=== PATIENT | female | born 1975 | race Caucasian/White ===

== ENCOUNTER 2021-11-13 16:04 | Emergency (ER) | payer OTHER ==
[~2021-11-13] VITALS: Ht 170.2 cm; Wt 93.0 kg
--- OUTSIDE RECORDS SUMMARY | 2021-11-13 16:08 | XMS ---
PreManage Notification: EDUARDO DAVENPORT [employer] [facility] Financial Analyst Events No recent Security Events currently on file [facility] There are no care providers on record at this time. Scot has no Care Guidelines for this patient. Ayse VISIT COUNT (12 MO.) 1 MICKEY Soto TOTAL 1 NOTE: Visits indicate total known visits. ED/C VISIT TRACKING (12 MO.) 11/13/2021 16:05 MICKEY Driver OR TYPE: Emergency COMPLAINT: - R HAND INJURY INPATIENT VISIT TRACKING (12 MO.) No inpatient visits to display in this time frame [email or web address]
[2021-11-13] MEDS ORDERED: TRAZODONE HCL50 MG PO (18:47)
[2021-11-13] MEDS ORDERED: FEROSUL325 MG PO (18:47)
[2021-11-13] MEDS ORDERED: MOVANTIK12.5 MG PO (18:48)
[2021-11-13] MEDS ORDERED: FLUTICASONE PRO15 G1 TOP (18:48)
[2021-11-13] MEDS ORDERED: LEVOTHYROXINE75 MCG PO (18:49)
[2021-11-13] MEDS ORDERED: BUPRENORPHINE-1 EACH SL (18:49)
[2021-11-13] MEDS ORDERED: PROMETHAZINE HC25 M1 PO (18:49)
[2021-11-13] MEDS ORDERED: AUGMENTIN 875-1 EACH PO (19:47)
[2021-11-13] MEDS ORDERED: ULTRAM50 MG PO (19:47)
== END 2021-11-13 20:15 | disposition home or self-care (01) ==
LOC: ED 16:04
DX: S61.230A Puncture wound without foreign body of right index finger without damage to nail, initial encounter (principal); W22.8XXA Striking against or struck by other objects, initial encounter; Y99.0 Civilian activity done for income or pay; Z23 Encounter for immunization; Z79.899 Other long term (current) drug therapy
CPT/HCPCS: 73140; 90471; 90714; 99283-25

== ENCOUNTER 2023-09-10 05:40 | Day surgery (SDC) | payer OTHER ==
[2023-07-13 09:27] VITALS: BP 105/79
[2023-08-30 10:25] VITALS: BP 119/79
[~2023-09-10] VITALS: Ht 170.2 cm; Wt 84.1 kg
[~2023-09-10 05:40] MED LIST: AUGMENTIN 875-1 EACH PO; BUPRENORPHINE-1 EACH SL; FEROSUL325 MG PO; FLUTICASONE PRO15 G1 TOP; GERI-KOT8.6 MG PO; LEVOTHYROXINE75 MCG PO; MOVANTIK12.5 MG PO; PROMETHAZINE HC25 M1 PO; TRAZODONE HCL50 MG PO; ULTRAM50 MG PO
[2023-09-10 05:56] VITALS: BP 111/74
--- NOTE | 2023-09-10 07:09 | NUR ---
PT ACCOMPANIED BY MALE AMUSEMENT PARK RIDE MECHANIC. BOTH IN GOOD SPIRITS. BOTH DENIED NEEDS. CONSENTED TO PRAYER. PRAYED FOR SUCCESSFUL PROCEDURE AND ABIDING PEACE.
--- NOTE | 2023-09-10 08:25 | NUR ---
09/10/23 0825 Martita Bowen 0808-PT PRESENTS TO PACU, NON REACTIVE INITIALLY. ALL MONITORS PLACED ON PT AND PT STARTING TO OPEN EYES WITH CONTINUED STIMULUS. PT DENIES PAIN AND NAUSEA. ABD SOFT, NON DISTENDED, ENCOURAGED TO PASS GAS. O2 IN PLACE AT 6L, INTERMITTENT COUGHING. LR INFUSING TO RW IV, NO SIGNS OF DISTRESS. 0812- PT PLACED ON ROOM AIR, TOLERATING WELL. WILL CONTINUE TO MONITOR. PT AWAKE AND ANSWERING QUESTIONS. MOVING ALL EXTREMITIES EQUALLY. 0824- WATER PROVIDED TO PT, TOLERATING WELL.
[2023-09-10 08:32] VITALS: BP 125/92
--- NOTE | 2023-09-10 09:16 | OR ---
[facility] [address], [place] [address] Signed DATE OF OPERATION: 09/10/2023 SURGEON: Fiona Junior MD PREOPERATIVE DIAGNOSES: 1. Chronic constipation (colonic inertia). 2. Hemorrhoids. 3. Paternal uncle with colon cancer in his 60s. 4. Maternal uncle with probable colon cancer in his 60s. 5. Paternal aunt of constipation in her early 50s. POSTOPERATIVE DIAGNOSES: 1. Long redundant left and sigmoid colon. 2. Minimal internal hemorrhoids. PROCEDURE: Colonoscopy without biopsy to the mid transverse colon at 100 cm. INDICATIONS: Allie is a 48-year-old female, asked to see me for her initial colonoscopy. She is describing constipation clear back to her childhood where she was only having 1 or 2 bowel movements per month. She sounds like classic colonic inertia. She of course suffers with some hemorrhoids. She talks about chronic pain issues and is now on Suboxone. She told me her paternal uncle had colon cancer in his 60s. She believes her maternal uncle also had colon cancer in his early 60s. She believes her maternal aunt of constipation in her 50s. Obviously this issue of constipation is quite concerning for her. She also told me she had three children born vaginally. She describes an episiotomy each time. However, she feels she has good sphincter tone. She has no fecal soilage. She told me she can take 3 to 5 Dulcolax pills before she finally gets crampy abdominal pain followed by mostly a solid bowel movement and then of course there is liquid stool behind that. Therefore, she has been asked to see me with respect to the above for colonoscopy. In the office, I had given her a pamphlet on colonoscopy. We had looked it at together. She understands there is risk including, but not limited to gas bloating, crampy abdominal pain, bleeding, perforation requiring surgery, and missed diagnosis. We also reviewed the written instructions for the bowel prep line by line. She actually used her Dulcolax pills two days prior to the procedure and then took a double bowel prep the day prior to the procedure. That would be an entire gallon of polyethylene glycol with additional Dulcolax pills. She said that worked out very well. She also understands because of her chronic pain issues and the Suboxone, we need an anesthesia provider to help us with increased monitoring and sedation with propofol. Electronically Signed By: FIONA JUNIOR MD 09/10/23 0916 PATIENT NAME: ALLIE DAVENPORT OPERATIVE REPORT DATE OF : 75 REPORT #: [id number] PHYSICIAN: FIONA JUNIOR MD PCP: BILLIE DOVE PA-C REPORT IS CONFIDENTIAL AND NOT TO BE RELEASED WITHOUT AUTHORIZATION [address] [address] Signed She had expressed understanding and wished to proceed. PROCEDURE NOTE: Allie was taken into our endoscopy suite and placed in the left lateral decubitus position. She was given monitored anesthesia care with propofol infusion per our nurse tire center manager. A digital rectal exam was performed. Really no external hemorrhoids. Her sphincter is intact circumferentially. She had moderate sphincter tone after the infusion of propofol. There were no masses. The adult colonoscope was introduced and advanced under direct visualization of the camera. She has a somewhat tortuous sigmoid colon. She also has a long redundant sigmoid and left colon. It took quite a bit of effort to pass the camera in and out multiple times with the help of abdominal compression. We also rotated her into the supine position and finally back into the left lateral decubitus position. We made it up around the splenic flexure into about the mid transverse colon. It was about 100 cm. Her prep was quite good. The scope was then slowly withdrawn. No evidence of any melanosis coli. There were no diverticula. There were no polyps. Once in the rectum, the scope had been retroflexed and she has very minimal internal hemorrhoid columns. After this, the gas was suctioned out and the colonoscope removed. Allie tolerated the procedure quite well. RECOMMENDATIONS: I will see Allie back in my office in the next 1 to 2 weeks. She will need a barium enema to more fully evaluate the entire length of her colon and then we will proceed from there. Fiona Junior MD ALB/MODL /[id number] cc: MD Billie Sorensen PA-C Electronically Signed By: FIONA JUNIOR MD 09/10/23 0916 PATIENT NAME: ALLIE DAVENPORT OPERATIVE REPORT DATE OF : 75 REPORT #: [id number] PHYSICIAN: FIONA JUNIOR MD PCP: BILLIE DOVE PA-C REPORT IS CONFIDENTIAL AND NOT TO BE RELEASED WITHOUT AUTHORIZATION [address], [place] [address] Signed Copies: FIONA JUNIOR MD ~ Electronically Signed By: FIONA JUNIOR MD 09/10/23 0916 PATIENT NAME: ALLIE DAVENPORT JES OPERATIVE REPORT DATE OF : 75 REPORT #: [id number] PHYSICIAN: FIONA JUNIOR MD PCP: BILLIE DOVE PA-C REPORT IS CONFIDENTIAL AND NOT TO BE RELEASED WITHOUT AUTHORIZATION
== END 2023-09-10 08:43 | disposition home or self-care (01) ==
LOC: OPS 05:40 → DS 05:40 → OPS 08:43
PROVIDERS: ATTEND Colon & Rectal Surgery
PROC: 0DJD8ZZ Inspection of Lower Intestinal Tract, Via Natural or Artificial Opening Endoscopic (ICD-10-PCS; principal; 2023-09-10 07:30)
DX: K59.00 Constipation, unspecified (principal); Z80.0 Family history of malignant neoplasm of digestive organs; F32.A Depression, unspecified; G89.4 Chronic pain syndrome; K44.9 Diaphragmatic hernia without obstruction or gangrene; K64.8 Other hemorrhoids
CPT/HCPCS: 00811; J2001; J2704